=== PATIENT | female | born 1990 | race Two or more races ===

== ENCOUNTER 2017-02-23 11:06 | Day surgery (SDC) | payer OTHER ==
[~2017-02-23] VITALS: Ht 152.4 cm; Wt 54.4 kg
--- NOTE | ~2017-02-23 | OP ---
Record Of Operation [facility] [address] [place]. [address] NAME: MITCH DE LOS SANTOS : 89 STATUS : [facility]#: [id number] AGE: 27 ADM/REG DATE : 02/23/17 MR#: [id number] REPORT SERV DATE: 02/24/17 DICTATED BY: NAVID REYNA DATE: 02/23/17 REPORT STATUS : Draft TRANSCRIBED BY: CLARE DATE: 02/23/17 DATE OF PROCEDURE: 02/23/2017 PREOPERATIVE DIAGNOSIS: Right breast mass. 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 PROCEDURE: Excisional biopsy of right breast mass. INDICATION FOR THE PROCEDURE: Ms. De Los Santos is a healthy 27-year-old female, with a right lower outer quadrant mass, which is smooth margined, with characteristics of a hormonal tumor. It has grown in size significantly since that first was being watched in 2016. The patient does request excision and this is a safe option for her. OPERATIVE FINDINGS: After appropriate consent was noted on the chart, the patient was taken to the operating room in supine position. She was placed under general anesthesia without any complications. Her right breast was prepped and draped in sterile fashion. An incision was made in the inframammary crease and sharp dissection carried down to the level of breast parenchyma with Bovie cauterization. Dissection was carried superiorly toward the palpable lesion, it was grasped with an Allis and excised fully. It was sent for permanent pathology without marking sutures. The wound was copiously irrigated with warm saline and hemostasis was achieved. Local anesthetic was infiltrated in the skin and soft tissue and the incision closed in two layers of Monocryl. The skin was cleansed and dried and Dermabond overlaid. The patient was awoken from anesthesia without complication, taken the PACU in stable condition for recovery. All counts were correct at the end of the case. ESTIMATED BLOOD LOSS: 10 mL. COMPLICATIONS: None. SPECIMENS: Right breast 7 o'clock mass. GABRIEL/CLARE Navid Reyna MD / [id number] CC: MD Michelle Millan M.D. [facility] JYOTI MARTINEZ NP
[~2017-02-23 11:06] MED LIST: *DENIES
== END 2017-02-23 15:15 | disposition home or self-care (01) ==
LOC: SDC 11:06
PROVIDERS: Surgery Surgical Oncology
PROC: 0HBT0ZX Excision of Right Breast, Open Approach, Diagnostic (ICD-10-PCS; principal; 2017-02-23 12:15)
DX: D24.1 Benign neoplasm of right breast (principal); F41.9 Anxiety disorder, unspecified; F32.9 Major depressive disorder, single episode, unspecified; F17.210 Nicotine dependence, cigarettes, uncomplicated
CPT/HCPCS: 84703; 88305; A9270-GY; J0690; J2175; J2250; J2405; J3010